=== PATIENT | female | born 1995 | race Caucasian/White ===

== ENCOUNTER 2020-11-28 01:15 | Emergency (ER) | payer MEDICAID ==
[~2020-11-28] VITALS: Ht 167.6 cm; Wt 63.5 kg
[2020-11-28 01:25] VITALS: BP_SYST 136
--- NOTE | 2020-11-28 01:25 | NUR ---
PT TO TRIAGE FOR EVALUATION
--- NOTE | 2020-11-28 01:35 | NUR ---
DR. SAHNI AT BEDSIDE AT BEDSIDE TO EVALUATE PT STATUS
[2020-11-28 02:52] VITALS: BP_SYST 136
--- NOTE | 2020-11-28 02:53 | NUR ---
Patient given written and verbal discharge instructions and verbalizes understanding. ER MD discussed with patient the results and treatment provided. Patient in stable condition. ID arm band removed. Rx of IBUPROFEN given. Patient educated on pain management and to follow up with PMD. Pain Scale 0/10. Opportunity for questions provided and answered. Medication side effect fact sheet provided.
== END 2020-11-28 02:53 | disposition home or self-care (01) ==
LOC: SED 01:15
DX: N64.4 Mastodynia (principal)
CPT/HCPCS: 71045; 99283